=== PATIENT | female | born 1955 | race African-American/Black ===

== ENCOUNTER 2019-06-28 15:33 | Emergency (ER) | payer OTHER, MEDICAID ==
[~2019-06-28] VITALS: Ht 180.3 cm; Wt 89.8 kg
--- NOTE | 2019-06-28 15:41 | NUR ---
Placed in room 06 . Placed on monitoring analyst, blood pressure machine and pulse oximeter. To gown for exam. Side rails up.
[2019-06-28 15:42] VITALS: BP_SYST 122
--- NOTE | 2019-06-28 16:00 | NUR ---
ER Dr. Bentley at bedside examining patient.
--- NOTE | 2019-06-28 16:10 | NUR ---
Patient presented to ER for Medical clearence. Patient A&Ox1, skin pink and warm, afebrile, appropriate with assessment and positioning, patient denies pain, denies N/V/D. Patient sent to ER for medical clearance for increased agitation, will go to [facility]. patient has left side contractures, previous stroke.
[2019-06-28 16:28] LABS: EOSINOPHILS # (AUTO) 0.1 K/uL (0.0-0.4); HEMOGLOBIN 17.8 g/dL (12.0-16.0); MONOCYTES # (AUTO) 0.8 K/uL (0.0-1.0); NEUTROPHILS # (AUTO) 8.6 K/uL (1.8-7.7)
[2019-06-28 16:36] LABS: BASOPHILS # (AUTO) 0.2 K/uL (0.0-0.2); BASOPHILS % (AUTO) 1.4 % (0.0-2.0); EOSINOPHILS % (AUTO) 1.2 % (0.0-4.0); HEMATOCRIT 52.8 % (36-48); LYMPHOCYTES # (AUTO) 2.5 K/uL (1.0-5.5); LYMPHOCYTES % (AUTO) 20.3 % (20.5-51.5); MEAN CORPUSCULAR HEMOGLOBIN 32 pg (27-31); MEAN CORPUSCULAR HGB CONC 34 % (32-36); MEAN CORPUSCULAR VOLUME 95 fL (79.0-98.0); MONOCYTES % (AUTO) 6.7 % (1.7-9.3); NEUTROPHILS % (AUTO) 70.4 % (40.0-70.0); RED BLOOD CELL COUNT(AUTO) 5.57 MIL/uL (4.2-6.2); RED CELL DISTRIBUTION WIDTH 13.5 % (9.0-15.0); WHITE BLOOD COUNT (AUTO) 12.2 K/uL (4.8-10.8)
[2019-06-28 16:43] LABS: PLATELET COUNT (AUTO) 609 K/uL (130-430)
--- NOTE | 2019-06-28 17:00 | NUR ---
# 16 FR In and Out catheter with use of sterile technique. Immediate return of 60 ml yellow urine noted. Urine sample collected and sent to lab. Pt tolerated procedure with aggitation. Patient unable to toilet self.
[2019-06-28 17:03] LABS: CHOLESTEROL 239 mg/dL (<200); HDL CHOLESTEROL 57 mg/dL (>55); LDL CHOLESTEROL 147 mg/dL (<100); TRIGLYCERIDES 138 mg/dL (30-150)
[2019-06-28 17:08] LABS: ANION GAP 6 (5-15); CALCIUM 9.9 mg/dL (8.4-11.0); CHLORIDE 109 mmol/L (98-107); GLUCOSE 108 mg/dL (70-99); POTASSIUM 4.5 mmol/L (3.5-5.1); SODIUM SERUM 143 mmol/L (136-145); UREA NITROGEN, BLOOD 22 mg/dL (8-21)
[2019-06-28 17:09] LABS: CREATININE 0.96 mg/dL (0.55-1.30); GFR AFRICAN AMERICAN 75 mL/min (>90)
[2019-06-28 17:20] LABS: TOTAL BILIRUBIN 0.4 mg/dL (0.0-1.0)
[2019-06-28 17:21] LABS: ALANINE AMINOTRANSFERASE 25 U/L (12-78); ALBUMIN 3.8 g/dL (3.4-4.8); ASPARTATE AMINOTRANSFERASE 22 U/L (10-37)
[2019-06-28 17:31] LABS: BILIRUBIN,URINE NEGATIVE (NEGATIVE); BLOOD, URINE NEGATIVE (NEGATIVE); CLARITY/URINE CLEAR (CLEAR); COLOR,URINE YELLOW (YELLOW); GLUCOSE,URINE NEGATIVE (NEGATIVE); KETONES,URINE TRACE (NEGATIVE); LEUKOCYTE ESTERASE ,URINE NEGATIVE (NEGATIVE); NITRITE, URINE NEGATIVE (NEGATIVE); PH,URINE 5.5 (5.0-8.0); PROTEIN URINE NEGATIVE (NEGATIVE); UROBILINOGEN,URINE 0.2 (0.2-1.0)
[2019-06-28 17:33] LABS: ACETAMINOPHEN < 1 ug/mL (1-30); ALCOHOL, BLOOD < 3 mg/dL (<10)
[2019-06-28 17:46] LABS: BACTERIA,URINE None Seen /HPF (None Seen); RBC,URINE 0-3 /HPF (0-3); WBC,URINE 0-3 /HPF (0-3)
[2019-06-28 17:47] LABS: BARBITURATE, URINE NEGATIVE (NEG <=200); BENZODIAZEPINE, URINE NEGATIVE (NEG <=150); CANNABINOID, URINE NEGATIVE (NEG <=50); COCAINE, URINE NEGATIVE (NEG <=150); METHAMPHETAMINES SCREEN,URINE NEGATIVE (NEG <=500); OPIATE, URINE NEGATIVE (NEG <=100); PHENCYCLIDINE SCREEN,URINE NEGATIVE (NEG <=25); UR TRICYCLIC ANTIDEPRESSANTS NEGATIVE (NEG <=300); URINE AMPHETAMINE NEGATIVE (NEG <=500); URINE METHADONE NEGATIVE (NEG <=200); URINE OXYCODONE SCREEN NEGATIVE (NEG <=100); URINE PROPOXYPHENE SCREEN NEGATIVE (NEG <=300)
--- NOTE | 2019-06-28 18:20 | NUR ---
Patient to be transferred to [facility]. Is being transferred due to higher level of care. Receiving facility has accepting physician and available space. ER physician has signed transfer form. Patient has agreed to transfer and unable to signed form, signed by two RN's. Patient belongings inventoried and will be sent with patient. Copy of nursing notes, lab reports, EKG, Physicians Orders and X-rays to be sent with patient. Report called to Benny LE at receiving facility. Receiving physician is Miriam. ambulance service has been called for transfer. ETA is 90 min.
--- NOTE | 2019-06-28 19:21 | NUR ---
Report to [facility]
[2019-06-28 20:00] VITALS: BP_SYST 120
--- NOTE | 2019-06-28 20:00 | NUR ---
Patient to be transferred to [facility]. Is being transferred due to higher level of care. Receiving facility has accepting physician and available space. ER physician has signed transfer form. Patient or responsible democrat has agreed to transfer and signed form. Patient belongings inventoried and will be sent with patient. Copy of nursing notes, lab reports, EKG, Physicians Orders and X-rays to be sent with patient. Report called to MIMI Zapata at receiving facility. Receiving physician is Dr. Pereira. Pt leaves via stretcher in care of BLS.
== END 2019-06-28 20:00 ==
LOC: SED 15:33
DX: F29 Unspecified psychosis not due to a substance or known physiological condition (principal); E78.5 Hyperlipidemia, unspecified; F45.8 Other somatoform disorders; F31.9 Bipolar disorder, unspecified; Z88.0 Allergy status to penicillin; R03.0 Elevated blood-pressure reading, without diagnosis of hypertension
CPT/HCPCS: 36415; 80053; 80061; 80307; 81000; 81003; 83036; 85025; 87081; 99285; G0480; G0481; G0482

== ENCOUNTER 2019-06-30 13:08 | Outpatient (CLI) | payer OTHER | END 2019-06-30 21:11 | disposition home or self-care (01) | LOC: SLB 13:08 | DX: Z00.00 Encounter for general adult medical examination without abnormal findings (principal) | CPT/HCPCS: 87081 ==